=== PATIENT | female | born 2000 | race African-American/Black ===

== ENCOUNTER 2022-08-28 12:16 | Emergency (ER) | payer OTHER ==
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
[2022-08-28] MEDS ORDERED: KETOROLAC 30 MG/ML INJ ONE (12:39)
[2022-08-28 13:36] VITALS: BP 134/75; O2SAT 99
== END 2022-08-28 13:08 | disposition home or self-care (01) ==
LOC: ER 12:16
DX: S09.90XA Unspecified injury of head, initial encounter (principal); V49.40XA Driver injured in collision with unspecified motor vehicles in traffic accident, initial encounter; Z91.013 Allergy to seafood; Z91.041 Radiographic dye allergy status
CPT/HCPCS: 96372; 99283